=== PATIENT | male | born 1990 | race African-American/Black ===

== ENCOUNTER 2022-01-19 15:49 | Emergency (ER) | payer OTHER ==
[2022-01-19 17:27] VITALS: BP 130/72; PULSE 90; RESP 18; TEMP 98.1; BMI 23.8
[2022-01-19] MEDS ORDERED: KETOROLAC TROMETHAMINE 30 MG/1 ML VIAL IM ONE (18:36)
[2022-01-19] MEDS ORDERED: diazePAM 5 MG TABLET PO ONE (18:36)
[2022-01-19] MEDS ORDERED: diazePAM 5 MG TABLET ONE (18:41)
[2022-01-19] MEDS ORDERED: KETOROLAC TROMETHAMINE 30 MG/1 ML VIAL ONE (18:41)
== END 2022-01-19 20:35 | disposition home or self-care (01) ==
LOC: JERFT 15:49 → JER 15:49 → JERFT 20:35
PROC: 3E0233Z Introduction of Anti-inflammatory into Muscle, Percutaneous Approach (ICD-10-PCS; principal; 2022-01-19)
DX: M25.512 Pain in left shoulder (principal); M54.12 Radiculopathy, cervical region; V49.50XA Passenger injured in collision with unspecified motor vehicles in traffic accident, initial encounter
CPT/HCPCS: 72125-TC; 73030-TC-LT-FY; 99284-25